=== PATIENT | female | born 1950 | race Caucasian/White ===

== ENCOUNTER 2020-07-11 14:10 | Inpatient (IN) ==
[2020-07-11 15:11] LABS: Basophils # 0.1 K/mcL (0.0-0.2); Basophils % 0.8 %; Eosinophils # 0.1 K/mcL (0.0-0.6); Hematocrit 38.3 % (35.3-44.9); Hemoglobin 13.1 g/dL (11.5-15.4); Immature Granulocytes % 0.4 % (0-4); Lymphocytes # 1.3 K/mcL (0.6-4.6); Lymphocytes % 13.9 %; Mean Corpuscular HGB Conc 34.2 g/dL (31.6-35.5); Mean Corpuscular Hemoglobin 31.7 pg (28.0-33.3); Mean Corpuscular Volume 92.7 fL (83.0-100.0); Mean Platelet Volume 9.9 fL (9.4-12.4); Monocytes # 0.5 K/mcL (0.0-1.3); Monocytes % 5.5 %; Neutrophils # 7.5 K/mcL (1.6-8.9); Platelet Count 214 K/mcL (140-400); Red Blood Count 4.13 M/mcL (3.82-4.97); Red Cell Distribution Width 13.2 % (11.5-14.5); Segmented Neutrophils % 78.4 %; White Blood Count 9.6 K/mcL (4.3-11.1)
[2020-07-11 15:32] LABS: BUN/Creatinine Ratio 24 (6-26); Blood Urea Nitrogen 22 mg/dL (8-23); Calcium 9.4 mg/dL (8.6-10.3); Carbon Dioxide 26 mEq/L (23-29); Chloride 101 mEq/L (98-107); Glucose 106 mg/dL (70-105); Osmolality,Calculated 290 (280-300); Potassium 3.4 mEq/L (3.5-5.1); Sodium 138 mEq/L (136-145); eGFR For African Americans > 60 (> 60); eGFR For Non-African Americans > 60 (> 60)
[2020-07-11 15:33] LABS: Troponin I < 0.03 ng/mL (< 0.04)
[2020-07-11] MEDS ORDERED: Aspirin 325 MG TABLET PO ONE (15:42)
[2020-07-11] MEDS ORDERED: Nitroglycerin 0.4 MG TAB.SUBL SL PRN (15:42)
[2020-07-11] MEDS ORDERED: Potassium Chloride Elixir 20 MEQ/15 ML UDC PO ONE ×2 (17:28→19:30)
[2020-07-11] MEDS ORDERED: Isovue-370 500 ML BOTTLE IVP ONE (17:56)
[2020-07-11] MEDS ORDERED: Perflutren Lipid Microsphere 1.3 ML in 0.9 % Sodium Chloride 8.7 ML IVP PRN (17:58)
[2020-07-11 17:59] LABS: Thyroid Stimulating Hormone 1.714 mcIU/mL (0.340-5.600)
[2020-07-11] MEDS ORDERED: Acetaminophen 325 MG TABLET PO PRN (17:59)
[2020-07-11] MEDS ORDERED: Naloxone 0.4 MG/ML INJ IVP PRN (17:59)
[2020-07-11] MEDS: *HR* Heparin 5,000 UNIT/ML VIAL SQ SCH (22:14)
[2020-07-12] MEDS ORDERED: Melatonin 3 MG TABLET PO ONE ×2 (00:57→20:45)
[2020-07-12 03:46] LABS: INR 1.1; Prothrombin Time 12.7 Seconds (9.4-12.1)
[2020-07-12 03:48] LABS: Activated Partial Thrombo Time 30.4 Seconds (26.0-36.0)
[2020-07-12 03:55] LABS: Hematocrit 37.7 % (35.3-44.9); Hemoglobin 12.8 g/dL (11.5-15.4); Mean Corpuscular Hemoglobin 32.3 pg (28.0-33.3); Mean Corpuscular Volume 95.2 fL (83.0-100.0); Mean Platelet Volume 9.9 fL (9.4-12.4); Platelet Count 202 K/mcL (140-400); Red Blood Count 3.96 M/mcL (3.82-4.97); Red Cell Distribution Width 13.1 % (11.5-14.5); White Blood Count 6.7 K/mcL (4.3-11.1)
[2020-07-12 04:01] LABS: BUN/Creatinine Ratio 26 (6-26); Blood Urea Nitrogen 18 mg/dL (8-23); Carbon Dioxide 26 mEq/L (23-29); Chloride 104 mEq/L (98-107); Chol/HDL Ratio 2.7 (0-4.9); Cholesterol 192 mg/dL (< 200); Glucose 104 mg/dL (70-105); HDL Cholesterol 71 mg/dL (40-59); LDL Cholesterol,Calculated 91 mg/dL (< 100); Magnesium 1.4 mg/dL (1.6-2.6); Osmolality,Calculated 286 (280-300); Potassium 3.9 mEq/L (3.5-5.1); Sodium 137 mEq/L (136-145); Triglycerides 151 mg/dL (< 150); eGFR For African Americans > 60 (> 60); eGFR For Non-African Americans > 60 (> 60)
[2020-07-12] MEDS: *HR* Heparin 5,000 UNIT/ML VIAL SQ SCH ×2 (05:41→14:10)
[2020-07-12] MEDS ORDERED: Regadenoson 0.4 MG/5 ML SYRINGE IVP ONE (06:50)
[2020-07-12] MEDS: predniSONE 5 MG TABLET PO SCH (08:11)
[2020-07-12] MEDS: Multivit/Ca/Min/Fe/FA 1 TAB TABLET PO SCH (08:11)
[2020-07-12] MEDS: Aspirin Enteric Coated 81 MG Tablet PO SCH (08:11)
[2020-07-12] MEDS: lisinopriL 10 MG TABLET PO SCH (08:11)
[2020-07-12] MEDS: Letrozole 2.5 MG TABLET PO SCH (08:11)
[2020-07-12] MEDS: amLODIPine 5 MG TABLET PO SCH (08:11)
[2020-07-12] MEDS ORDERED: Magnesium Sulfate 1 GM/102 ML PIGGYBACK IVPB ONE (08:21)
[2020-07-12 08:57] LABS: Estimated Average Glucose 111 mg/dl; Hemoglobin A1C 5.5 %
[2020-07-12] MEDS ORDERED: *HR* Heparin 5,000 UNIT/ML VIAL IVP PRN ×2 (17:32)
[2020-07-12 18:11] LABS: Hematocrit 39.6 % (35.3-44.9); Hemoglobin 13.6 g/dL (11.5-15.4); Mean Corpuscular HGB Conc 34.3 g/dL (31.6-35.5); Mean Corpuscular Hemoglobin 31.6 pg (28.0-33.3); Mean Corpuscular Volume 92.1 fL (83.0-100.0); Mean Platelet Volume 9.7 fL (9.4-12.4); Platelet Count 201 K/mcL (140-400); Red Cell Distribution Width 13.2 % (11.5-14.5); White Blood Count 6.3 K/mcL (4.3-11.1)
[2020-07-12 18:19] LABS: Prothrombin Time 11.9 Seconds (9.4-12.1)
[2020-07-12 18:23] LABS: Heparin anti-factor XA UFH 0.06 IU/mL (0.30-0.70)
[2020-07-12] MEDS ORDERED: Heparin 25,000UNIT/250ML 1/2NS 25,000 UNIT/250 ML IV.SOLN IVC SCH (19:00)
[2020-07-12] MEDS: atenoloL 50 MG TABLET PO SCH (20:25)
[2020-07-12] MEDS ORDERED: *HR* Heparin 5,000 UNIT/ML VIAL IVP ONE (21:02)
[2020-07-13 02:19] LABS: Mean Corpuscular HGB Conc 34.2 g/dL (31.6-35.5); Mean Corpuscular Hemoglobin 32.5 pg (28.0-33.3); Mean Platelet Volume 9.8 fL (9.4-12.4); Platelet Count 200 K/mcL (140-400); Red Cell Distribution Width 13.1 % (11.5-14.5); White Blood Count 7.2 K/mcL (4.3-11.1)
[2020-07-13 02:39] LABS: BUN/Creatinine Ratio 18 (6-26); Blood Urea Nitrogen 12 mg/dL (8-23); Calcium 8.9 mg/dL (8.6-10.3); Carbon Dioxide 24 mEq/L (23-29); Chloride 105 mEq/L (98-107); Glucose 92 mg/dL (70-105); Osmolality,Calculated 285 (280-300); Potassium 3.8 mEq/L (3.5-5.1); Sodium 138 mEq/L (136-145); eGFR For African Americans > 60 (> 60); eGFR For Non-African Americans > 60 (> 60)
[2020-07-13] MEDS: atenoloL 50 MG TABLET PO SCH (08:17)
[2020-07-13] MEDS: amLODIPine 5 MG TABLET PO SCH (08:17)
[2020-07-13] MEDS: predniSONE 5 MG TABLET PO SCH (08:17)
[2020-07-13] MEDS: Letrozole 2.5 MG TABLET PO SCH (08:17)
[2020-07-13] MEDS: Multivit/Ca/Min/Fe/FA 1 TAB TABLET PO SCH (08:17)
[2020-07-13] MEDS: lisinopriL 10 MG TABLET PO SCH (08:17)
[2020-07-13] MEDS: Aspirin Enteric Coated 81 MG Tablet PO SCH (08:20)
[2020-07-13 11:22] VITALS: BP 143/92
[2020-07-13] MEDS ORDERED: Apixaban 5 MG TABLET PO SCH (13:00)
== END 2020-07-13 14:11 | disposition home or self-care (01) | DRG 301 ==
LOC: EMEROOARM 14:10 → 3BNU 14:10
PROVIDERS: ADMIT Internal Medicine; ATTEND Internal Medicine